=== PATIENT | male | born 1935 | race Caucasian/White ===

== ENCOUNTER 2017-03-24 14:16 | Observation (INO) | payer OTHER, MEDICAID ==
[2017-03-24] MEDS ORDERED: NS 1,000 ML IV ONE ×2 (14:24→14:45)
--- NOTE | 2017-03-24 14:27 | EDPHY ---
H & P HPI/ROS: HPI CHIEF COMPLAINT: Flu-like illness, cough, fever, confusion HISTORY OF PRESENT ILLNESS: Patient is a 81-year-old male he is [place]an speaking only, history review of systems comes from EMS as well as grand children at bedside whom speak Palauan and [place]an. For the past week or since Tuesday he has had increasing confusion, generalized weakness, cough, fever to 103 at home and flu-like illness. The decided call 911 to day as he has had increasing weakness and confusion. EMS reported a temperature inner ambulance of 102 degrees. at bedside reports T-max at home 103. No vomiting or diarrhea no chest pain. No abdominal pain. Main complaint flu-like illness with fever with generalized weakness with increasing altered mental status. Past Medical History: BPH Past Surgical History: No recent surgery Social History: Lives locally, at bedside, grandkids at bedside. [place]an- speaking only. Family History: Noncontributory ROS REVIEW OF SYSTEMS: A comprehensive 10 point review of systems is otherwise negative aside from elements mentioned in the history of present illness. Exam Constitutional appears elderly, frail, triage nursing summary reviewed, vital signs reviewed, awake/alert. Temperature 38.4 degrees Eyes normal conjunctivae and sclera, EOMI, PERRLA. HENT normal inspection, atraumatic, moist mucus membranes, no epistaxis, neck supple/ no meningismus, no raccoon eyes. Respiratory clear to auscultation bilaterally, normal breath sounds, no respiratory distress, no wheezing. Cardiovascular rate normal, regular rhythm, no murmur, no edema, distal pulses normal. Gastrointestinal soft, non-tender, no rebound, no guarding, normal bowel sounds, no distension, no pulsatile mass. Genitourinary no CVA tenderness. Musculoskeletal no midline vertebral tenderness, full range of motion, no calf swelling, no tenderness of extremities, no meningismus, good pulses, neurovascularly intact. Skin pink, warm, & dry, no rash, skin atraumatic. Neurologic awake, alert and oriented x 3, AAOx3, moves all 4 extremities equally, motor intact, sensory intact, CN II-XII intact, normal cerebellar, normal vision, normal speech. Psychiatric normal mood/affect. Heme/Lymph/Immune no lymphadenopathy. Differential Diagnosis: Includes but is not limited to in a particular order: Acute febrile illness, influenza, pneumonia, viral syndrome, sepsis, bacteremia , UTI Medical Decision Making: Plan for this patient blood cultures, IV establishment blood draw, IV fluid bolus, check influenza, chest x-ray for pneumonia, check urinalysis evaluate for fever and altered mental status. Re-evaluation: CT head without contrast negative. The patient's urinalysis shows UTI. Rocephin has been ordered. Urine culture ordered. Blood cultures ordered. Fevers down. He has received IV fluids. Lactic acid is down. [facility] be [facility]. Source: Patient, EMS Exam Limitations: Language barrier Constitutional: Initial Vital Signs Temperature (C) 38.4 C H 03/24/17 14:38 Heart Rate 102 H 03/24/17 14:38 Respiratory Rate 18 03/24/17 14:38 Blood Pressure 140/80 H 03/24/17 14:38 O2 Sat (%) 94 03/24/17 14:38 O2 Delivery Mode Nasal Cannula O2 (L/minute) 2 Allergies/Adverse Reactions: Waoijjh-Ryf-Gza Reductase Inhibitor Allergy (Verified 03/24/17 14:52) Home Medications: Medication Instructions Recorded Albuterol [Proventil Inhaler HFA 2 puffs IH Q4HRS PRN 03/24/17 (*)] Aspirin [Aspirin 81mg (*)] 81 mg PO DAILY 03/24/17 Cholecalciferol Vit D3 [Vitamin D3 2,000 units PO DAILY 03/24/17 2000 units tab (OTC)] Finasteride [Proscar 5 MG (*)] 5 mg PO DAILY 03/24/17 Niacin ER [Niaspan 500 mg (*)] 500 mg PO DAILY 03/24/17 Simvastatin [Zocor] 20 mg PO DAILY 03/24/17 Tamsulosin HCl [Flomax 0.4 MG (*)] 0.4 mg PO DAILY 03/24/17 Zolpidem Tartrate [Ambien 5MG (*)] 10 mg PO HS 03/24/17 clonazePAM [Klonopin (*)] 0.5 mg PO HS 03/24/17 Acetaminophen [Tylenol 325mg (*)] 650 mg PO Q4HRS PRN tab 03/25/17 Medical Decision Making - Data Points Laboratory Results: Laboratory Results 03/24/17 14:18 03/24/17 14:18 Microbiology Results: MICROBIOLOGY 03/24/17 14:18 Urine,Clean Catch Urine Culture - Final Escherichia Coli Medications Given: Discontinued Medications Acetaminophen (Tylenol) 650 mg PO EDNOW ONE Stop: 03/24/17 14:44 Last Admin: 03/24/17 14:50 Dose: 650 mg Aspirin (Aspirin) 81 mg PO DAILY CRISTIAN Stop: 09/21/17 08:59 Last Admin: 03/25/17 09:30 Dose: 81 mg Cholecalciferol (Vitamin D) 2,000 units PO DAILY CRISTIAN Stop: 09/21/17 08:59 Last Admin: 03/25/17 09:30 Dose: 2,000 units Clonazepam (Klonopin) 0.5 mg PO HS CRISTIAN Stop: 09/20/17 20:59 Last Admin: 03/24/17 20:20 Dose: 0.5 mg Enoxaparin Sodium (Lovenox) 40 mg SC DAILY CRISTIAN Stop: 09/21/17 08:59 Last Admin: 03/25/17 10:38 Dose: Not Given Finasteride (Proscar) 5 mg PO DAILY CRISTIAN Stop: 09/20/17 18:14 Last Admin: 03/25/17 09:30 Dose: 5 mg Sodium Chloride (Ns) 1,000 mls @ 0 mls/hr IV EDNOW ONE; Wide Open PRN Reason: Protocol Stop: 03/24/17 14:25 Last Admin: 03/24/17 14:50 Dose: 1,000 mls Sodium Chloride (Ns) 1,000 mls @ 0 mls/hr IV ONCE ONE PRN Reason: Wide Open Stop: 03/24/17 14:46 Last Admin: 03/24/17 15:31 Dose: 1,000 mls Ceftriaxone Sodium 1 gm/ (Sterile Water) 10 mls @ 150 mls/hr IV EDNOW ONE PRN Reason: Protocol Stop: 03/24/17 15:02 Last Admin: 03/24/17 16:24 Dose: 10 mls Ceftriaxone Sodium 1 gm/ (Sterile Water) 10 mls @ 150 mls/hr IV DAILY CRISTIAN PRN Reason: Protocol Stop: 04/24/17 08:59 Last Admin: 03/25/17 09:30 Dose: 10 mls Niacin (Niaspan) 500 mg PO DAILY CRISTIAN Stop: 09/21/17 08:59 Last Admin: 03/25/17 09:30 Dose: 500 mg Tamsulosin HCl (Flomax) 0.4 mg PO DAILY CRISTIAN Stop: 09/21/17 08:59 Last Admin: 03/25/17 09:30 Dose: 0.4 mg Zolpidem Tartrate (Ambien) 10 mg PO [facility] Stop: 09/20/17 20:59 Last Admin: 03/24/17 20:20 Dose: 10 mg Departure - Departure Disposition: [facility] Acute Clinical Impression: Confused UTI (urinary tract infection) Qualifiers: Urinary tract infection type: acute cystitis Hematuria presence: with hematuria Qualified Code(s): N30.01 - Acute cystitis with hematuria Condition: Good
[2017-03-24 14:31] LABS: PLATELET COUNT 101 10^3/uL (150-400)
[2017-03-24 14:41] LABS: INR 1.05 (0.83-1.16); PROTIME(PATIENT) 13.9 SEC (12.0-15.0)
[2017-03-24 14:42] LABS: CREATINE KINASE 107 IU/L (0-224)
[2017-03-24] MEDS ORDERED: ACETAMINOPHEN 325 MG TAB PO ONE (14:43)
[2017-03-24] MEDS ORDERED: cefTRIAXone 1 GM in STERILE WATER INJ 10 ML IV ONE (14:59)
[2017-03-24] MEDS ORDERED: NS 1,000 ML IV SCH (18:00)
[2017-03-24] MEDS ORDERED: ACETAMINOPHEN 325 MG TAB PO PRN (18:00)
[2017-03-24] MEDS ORDERED: ONDANSETRON DISINTEGRATING 4 MG TAB PO PRN (18:00)
[2017-03-24] MEDS ORDERED: ONDANSETRON 4 MG/2 ML VIAL IVP PRN (18:00)
[2017-03-24] MEDS ORDERED: IBUPROFEN 200 MG TAB PO PRN (18:00)
[2017-03-24] MEDS ORDERED: diphenhydrAMINE 25 MG CAP PO PRN (18:00)
[2017-03-24] MEDS ORDERED: ALBUTEROL 60 PUFFS/8 GM MDI IH PRN (18:03)
--- NOTE | 2017-03-24 18:09 | SOAPPROG ---
SOAP Progress Note Assessment/Plan: Assessment: Plan: 03/24/17 18:07 prostatitis/UTI with fever chills and AMS, likely due to dehydration and fever-- markedly improved. Initial lactate level elevated, repeat normal. Clinically stable now. Will continue IVF's, tylenol/advil for fever and will give next dose of ceftriaxone in am. Anticipate d/c tomorrow with appropriate antibiotic called into local pharmacy Subjective: c/o fatigue, aches, chills and confusion today. Seen at office yesterday for similar. UTI diagnosed, antibiotics not yet started. He feels much better now after fluids, antibiotics and tylenol. 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
[2017-03-24] MEDS: FINASTERIDE 5 MG TAB PO SCH (18:44)
--- NOTE | 2017-03-24 18:48 | GHP ---
[f rep st] HISTORY AND PHYSICAL DATE OF ADMISSION: 03/24/2017 REASON FOR ADMISSION: Fever, chills, urinary tract infection, altered mental status, dehydration. HISTORY OF PRESENT ILLNESS: Patient has had some level of dysuria for perhaps the past week. He had an elevated temperature yesterday and was seen in the office with his 's concern that he had influenza. A rapid flu test was negative. He had some crackles in his lungs. His urine was notably positive suggestive of urinary tract infection. Blood work was drawn. He was intended to start on the antibiotics cefuroxime and Zithromax, which unfortunately he did not take today. He was at home. His noted he was very lethargic, somewhat mottled, confused and weak, given what she thought was a trend towards becoming unresponsive, she called 911. The patient was seen in the ER. He was given fluids, IV antibiotics, CT head, chest x-ray, blood cultures, urine culture, and the results of the findings suggest urinary tract infection with systemic effects. This has improved dramatically after IV fluids and antibiotics. He is currently afebrile, comfortable, and asked if he could go home. He denies any localizing pain. He admits that the dysuria has improved with recent rehydration and antibiotics. PAST MEDICAL HISTORY: Some history of prostatitis and BPH symptomatology, atherosclerosis by heart scan, dyslipidemia, insomnia. He has sleep apnea, low- level diabetes as well. SURGICAL HISTORY: Noncontributory. None recently. FAMILY HISTORY: Father at 78 from stomach cancer. Mother at 82 from stomach cancer. SOCIAL HISTORY: Nonsmoker and nondrinker. . Daughter is used for translation today. ALLERGIES: Office chart, no known drug allergies here. Intolerance to statins has been listed. REVIEW OF SYSTEMS: Positive for fever, aches, and chills. This has resolved. HEAD: No headache. No visual changes. No sore throat. No ear pain. No difficulty swallowing. He denies shortness of breath, cough, wheeze or congestion. He denies chest pain or palpitations. He denies nausea, vomiting, abdominal pain, diarrhea, or change in gastrointestinal processing. URINARY: As per HPI. No current discomfort. He is able to urinate while I am in the room without any difficulty. He has not had any skin rashes. No unusual joint pain. No localizing fluctuance. PHYSICAL EXAM: VITAL SIGNS: Initial temperature 38.4, currently 36.4, blood pressure ranging from 123-140 systolic, heart rate in the 80s currently. Saturation 90% on room air. GENERAL: Pleasant, alert male, Brazilian speaking. Daughter does translation with ease. HEENT: No evidence of trauma. Symmetric pupils. Oropharynx benign. Speech is fluid. Neck without masses. No jugular venous pressure elevation, lymphadenopathy, or limited range of motion. LUNGS: Faint crackles in bases which appears to be stable finding, dry cough. Chest x- ray is clear. HEART: Regular rate and rhythm. No murmur. ABDOMEN: Positive bowel sounds. Soft, nontender, nondistended. No guarding, rebound or masses. SKIN: Warm, dry, intact. No edema. Joints without erythema, warmth, or swelling. RECTAL: Deferred. CBC, white count 8.3 with a left shift. Platelet count mildly diminished at 101. INR is normal. Initial lactic acid 2.3. Repeat an hour later 1.1. Metabolic panel, mild elevation of glucose at 236, mild elevation of total bilirubin 2.1. Troponins negative. BNP negative. Pancreatic enzymes negative. Urinalysis positive. Urine culture from yesterday, gram negative. 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 CT head negative. Chest x-ray is negative. EKG sinus rhythm. ASSESSMENT: Significant urinary tract infection with fever, aches, chills, dehydration. This is improved with ER treatment. Suspect he has a symptomatic urinary tract infection with underlying prostatitis. Will continue on ceftriaxone given rapid improvement. Will continue IV fluids tonight as long as he is clinically stable, will continue on a p.o. antibiotic. Hopefully, culture results from yesterday will be available tomorrow to further guide although this is likely going to be a gram-negative E coli and we will tailor therapy based on potential resistances. Chronic medical conditions otherwise stable. Patient is currently in good, stable condition. /[id number]/MODL MTDD
[2017-03-24] MEDS ORDERED: clonazePAM 0.5 MG TAB PO SCH (21:00)
[2017-03-24] MEDS ORDERED: ZOLPIDEM TARTRATE 5 MG TAB PO SCH (21:00)
[2017-03-25 04:34] VITALS: BP 138/70; PULSE 90; RESP 16; TEMP 99.4; O2SAT 94
[2017-03-25 04:53] LABS: PLATELET COUNT 111 10^3/uL (150-400)
[2017-03-25] MEDS ORDERED: CHOLECALCIFEROL VIT D3 2,000 UNITS TAB/CAP PO SCH (09:00)
[2017-03-25] MEDS ORDERED: ENOXAPARIN 40 MG/0.4 ML SYR SC SCH (09:00)
[2017-03-25] MEDS ORDERED: ASPIRIN 81 MG CHEWABLE TAB PO SCH (09:00)
[2017-03-25] MEDS ORDERED: TAMSULOSIN HCL 0.4 MG CAP PO SCH (09:00)
[2017-03-25] MEDS ORDERED: NIACIN ER 500 MG TAB.ER PO SCH (09:00)
[2017-03-25] MEDS ORDERED: cefTRIAXone 1 GM in STERILE WATER INJ 10 ML IV SCH (09:00)
[2017-03-25] MEDS ORDERED: ENOXAPARIN 30 MG/0.3 ML SYR SC SCH (09:00)
--- NOTE | 2017-03-25 09:03 | SOAPPROG ---
SOAP Progress Note Assessment/Plan: Assessment: Plan: 03/24/17 18:07 prostatitis/UTI with fever chills and AMS, likely due to dehydration and fever-- markedly improved. Initial lactate level elevated, repeat normal. Clinically stable now. Will continue IVF's, tylenol/advil for fever and will give next dose of ceftriaxone in am. Anticipate d/c tomorrow with appropriate antibiotic called into local pharmacy 03/25/17 09:02 UTI with systemic symptoms--improving. Mcclendon sensitive e coli on urine culture from 48 hours ago. 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 [facility] . Subjective: Patient's Julianne present today. She reports patient with up and down frequently last night with the need to urinate. Some fever. Warmer and somewhat achy this morning. No new complaints Objective: Vital Signs Temp Pulse Resp BP Pulse Ox 37.4 C 90 16 138/70 H 94 03/25/17 04:32 03/25/17 04:32 03/25/17 04:32 03/25/17 04:32 03/25/17 04:32 Laboratory Results 03/25/17 04:25 03/25/17 04:25 03/24/17 03/25/17 03/26/17 05:59 05:59 05:59 Intake Total 2000 Output Total 400 Balance 1600 PT 13.9 SEC (12.0-15.0) 03/24/17 14:18 INR 1.05 (0.83-1.16) 03/24/17 14:18 Gen: pleasant, warm to touch Lungs: stable basilar crackles Heart: RRR Abd+ + bs soft NT LE's no edema urine culture with pansensitive e coli ICD10 Worksheet Patient Problems: Problems Problem Status Onset Confused Acute UTI (urinary tract infection) Acute
[2017-03-25] MEDS: FINASTERIDE 5 MG TAB PO SCH (09:30)
--- NOTE | 2017-03-25 09:55 | GDS ---
[f rep st] DISCHARGE SUMMARY DISPOSITION: Discharged to home. REASON FOR ADMISSION: Urinary tract infection with systemic symptoms. HOSPITAL COURSE: Patient was admitted to the ER due to lethargy, elevated fever, and some level of a ltered mental status. He received IV fluids and ceftriaxone with prompt improvement in his symptoms. His initial lactic acid was elevated. Repeat 1 hour later was normal. He was transferred to the [facility] for further supportive care. He has done well overnight with some low-grade temperatures. He u rinated frequently given fluid load from the ER. He feels improved today. He will receive another d ose of ceftriaxone this morning. If all is doing well, we will discharge home. We will start Bactri m Double Strength b.i.d. beginning this evening. This prescription will be called in by myself to [facility] and . He will be seen in the office for followup in the next week or so. /[id number]/MODL
== END 2017-03-25 12:49 | disposition home or self-care (01) ==
LOC: EDUNIT# → F3N 17:34
PROVIDERS: ADMIT Internal Medicine; ATTEND Internal Medicine
DX: N39.0 Urinary tract infection, site not specified (principal); E86.0 Dehydration; R41.82 Altered mental status, unspecified; E11.9 Type 2 diabetes mellitus without complications; G47.30 Sleep apnea, unspecified
CPT/HCPCS: 70450; 71045; 96361; 96365; 99285; G0378; J0696